=== PATIENT | male | born 1970 | race Asian ===

== ENCOUNTER 2019-09-25 11:17 | Emergency (ER) | payer OTHER ==
[~2019-09-25] VITALS: Ht 177.8 cm; Wt 104.3 kg
[2019-09-25 11:17] VITALS: TEMP 98.1
[2019-09-25 12:16] VITALS: BP 145/88
== END 2019-09-25 12:47 | disposition home or self-care (01) ==
LOC: ED 11:17
DX: S13.4XXA Sprain of ligaments of cervical spine, initial encounter (principal); S43.402A Unspecified sprain of left shoulder joint, initial encounter; S10.93XA Contusion of unspecified part of neck, initial encounter; S40.012A Contusion of left shoulder, initial encounter; V43.52XA Car driver injured in collision with other type car in traffic accident, initial encounter
CPT/HCPCS: 99283